=== PATIENT | female | born 1965 ===

== ENCOUNTER 2019-09-11 07:06 | Day surgery (SDC) | payer OTHER ==
[~2019-09-11 07:06] MED LIST: JARDIANCE10 MG PO; VIT D3 PO
== END 2019-09-11 19:25 | disposition home or self-care (01) ==
LOC: CIR.AMB 07:06 → ADM 10:30 → CIR.AMB 10:30
PROVIDERS: Plastic Surgery; Surgery
PROC: C71L1ZZ Planar Nuclear Medicine Imaging of Upper Chest Lymphatics using Technetium 99m (Tc-99m) (ICD-10-PCS; 2019-09-11)
PROC: 0HWT0YZ Revision of Other Device in Right Breast, Open Approach (ICD-10-PCS; 2019-09-11)
PROC: 0HBV0ZZ Excision of Bilateral Breast, Open Approach (ICD-10-PCS; 2019-09-11)
PROC: 0H0V0ZZ Alteration of Bilateral Breast, Open Approach (ICD-10-PCS; 2019-09-11)
PROC: 0HBT0ZZ Excision of Right Breast, Open Approach (ICD-10-PCS; principal; 2019-09-11 07:00)
PROC: 07B50ZZ Excision of Right Axillary Lymphatic, Open Approach (ICD-10-PCS; 2019-09-11 07:00)
DX: D05.11 Intraductal carcinoma in situ of right breast (principal); N62 Hypertrophy of breast; L90.5 Scar conditions and fibrosis of skin
CPT/HCPCS: 19301; 38525; 38792; 19318; 19366; 78195; A9541